=== PATIENT | female | born 1980 | race Caucasian/White ===

== ENCOUNTER 2017-08-08 00:27 | Inpatient (IN) | END 2017-08-10 15:03 | disposition home or self-care (01) | DRG 775 ==

== ENCOUNTER 2018-04-06 12:57 | Emergency (ER) | payer MEDICAID ==
[~2018-04-06] VITALS: Ht 167.6 cm; Wt 90.7 kg
[~2018-04-06 12:57] MED LIST: PREN-93 PO
[2018-04-06 13:02] VITALS: BP 149/95; PULSE 103; RESP 20; Ht 167.6 cm; Wt 90.7 kg
[2018-04-06] MEDS ORDERED: ACETAMINOPHEN 325 MG TAB PO ONE (15:30)
[2018-04-06] MEDS ORDERED: IBUP-1542 PO (16:32)
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
== END 2018-04-06 16:47 | disposition home or self-care (01) ==
LOC: FTE 12:57
DX: S02.2XXA Fracture of nasal bones, initial encounter for closed fracture (principal); S53.402A Unspecified sprain of left elbow, initial encounter; S60.222A Contusion of left hand, initial encounter; S00.83XA Contusion of other part of head, initial encounter; Y04.8XXA Assault by other bodily force, initial encounter
CPT/HCPCS: 70160; 73080; 73130; Z7502; Z7610